=== PATIENT | female | born 1995 | race Caucasian/White ===

== ENCOUNTER 2017-10-08 20:54 | Emergency (ER) | payer BC ==
--- NOTE | 2017-10-08 21:40 | Emergency Department Record ---
History of Present Illness - General Chief Complaint: Dizziness Stated Complaint: LIGHT HEADED AND HEAVYNESS IN CHEST Time Seen by Provider: 10/08/17 21:18 Source: Patient Mode of Arrival: Ambulatory - History of Present Illness Initial Comments: The patient has a 2 days ago at [facility] with epidural anesthesia. Following the delivery the next day she felt slight epigasric/chest discomfort and dizziness when she was walking. She states she had an EKG done and was given GI medicine with relief of what was felt to be GERD. Today she continues to have a fluttery feeling in her chest with slight dizziness when she stands and walks. She denies SOB. While in the delivery room after getting the epidural in place, she states she began feeling nauseated and anxious, "I was freaking out, my pulse was 120-135 and my BP became elevated." This resolved on its own. She came tonight because she still feels dizziness when she stands and slight epigastric discomfort. She is requesting a full work up. This is her second child. She denies vision changes, headache, stiff neck, but her lower back and thoracic back is sore. She denies swelling or tenderness in her legs. Risks: No DM, Htn, cholesterol elevation, smoking, FH heart problems, hx PE, DVT , or clotting disorders. Complaint: Lightheadedness (with standing up) Onset/Timin -: Days(s) Timing: Constant Description: Lightheadedness History of Same: No History of Trauma: No Severity: Moderate Improves With: Nothing Worsens With: Nothing Associated Symptoms: Denies other symptoms - Related Data Home Medications Medication Instructions Recorded Confirmed Last Taken No122/Iron/Folic Acid 1 each PO DAILY 10/08/17 10/08/17 Unknown [ Multi Tablet] Allergies Allergy/AdvReac Type Severity Reaction Status Date / Time No Known Drug Allergies Allergy Verified 10/08/17 21:13 Travel Screening - Travel/Exposure Within Last 30 Days Have you traveled within the last 30 days?: No Review of Systems Reviewed: No additional complaints except as noted below Constitutional: Reports: As per HPI. Denies: Chills, Fever, Malaise, Night sweats, Weakness, Weight change Eyes: Reports: As per HPI. Denies: Eye discharge, Eye pain, Photophobia, Vision change ENT: Reports: As per HPI. Denies: Congestion, Dental pain, Ear pain, Epistaxis , Hearing loss, Throat pain Respiratory: Reports: As per HPI. Denies: Cough, Dyspnea, Hemoptysis, Stridor, Wheezes Cardiovascular: Reports: As per HPI. Denies: Arrhythmia, Chest pain, Dyspnea on exertion, Edema, Murmurs, Orthopnea, Palpitations, Paroxysmal nocturnal dyspnea, Rheumatic Fever, Syncope Endocrine: Reports: As per HPI. Denies: Fatigue, Heat or cold intolerance, Polydipsia, Polyuria Gastrointestinal: Reports: As per HPI. Denies: Abdominal pain, Constipation, Diarrhea, Hematemesis, Hematochezia, Melena, Nausea, Vomiting Genitourinary: Reports: As per HPI. Denies: Abnormal menses, Discharge, Dyspareunia, Dysuria, Frequency, Hematuria, Incontinence, Retention, Urgency Musculoskeletal: Reports: As per HPI. Denies: Arthralgia, Back pain, Gout, Joint swelling, Myalgia, Neck pain Skin: Reports: As per HPI. Denies: Bruising, Change in color, Change in hair/ nails, Lesions, Pruritus, Rash Neurological: Reports: As per HPI. Denies: Abnormal gait, Confusion, Headache, Numbness, Paresthesias, Seizure, Tingling, Tremors, Vertigo, Weakness Psychiatric: Reports: As per HPI. Denies: Anxiety, Auditory hallucinations, Depression, Homicidal thoughts, Suicidal thoughts, Visual hallucinations Hematological/Lymphatic: Reports: As per HPI. Denies: Anemia, Blood Clots, Easy bleeding, Easy bruising, Swollen glands Past Medical History - SOCIAL HISTORY Smoking Status: Never smoker Alcohol Use: None Drug Use: None - RESPIRATORY Hx Respiratory Disorders: No - CARDIOVASCULAR Hx Cardio Disorders: No - NEURO Hx Neuro Disorders: No - GI Hx GI Disorders: Yes Hx Reflux: Yes - Hx Genitourinary Disorders: No - ENDOCRINE Hx Endocrine Disorders: No - MUSCULOSKELETAL Hx Musculoskeletal Disorders: No - PSYCH Hx Psych Problems: No - HEMATOLOGY/ONCOLOGY Hx Hematology/Oncology Disorders: No Family Medical History Any Significant Family History?: Yes Hx Cancer: Grandparents *Cancer Comment: Aunt Physical Exam - General General Appearance: Alert, Oriented x3, Cooperative, No acute distress - Head Head exam: Normal inspection - Eye Eye exam: Normal appearance, PERRL, EOMI. negative: Nystagmus Pupils: Normal accommodation - ENT ENT exam: Normal exam, Mucous membranes moist, Normal external ear exam, Normal orophraynx, TM's normal bilaterally Ear exam: Normal external inspection. negative: External canal tenderness Nasal Exam: Normal inspection. negative: Discharge, Sinus tenderness Mouth exam: Normal external inspection, Tongue normal Teeth exam: Normal inspection. negative: Dental caries Throat exam: Normal inspection. negative: Tonsillar erythema, Tonsillar exudate - Neck Neck exam: Normal inspection, Full ROM. negative: Tenderness - Respiratory Respiratory exam: Normal lung sounds bilaterally. negative: Respiratory distress - Cardiovascular Cardiovascular Exam: Regular rate, Normal rhythm, Normal heart sounds - GI/Abdominal GI/Abdominal exam: Soft, Normal bowel sounds. negative: Tenderness - Rectal Rectal exam: Deferred - exam: Deferred - Extremities Extremities exam: Normal inspection, Full ROM, Normal capillary refill. negative: Calf tenderness, Pedal edema, Tenderness - Back Back exam: Reports: Normal inspection, Full ROM, Other (mildly tender over epidural region, with diffuse mild "achy" soreness over thoracic back. No bony tenderness. ). Denies: CVA tenderness (R), CVA tenderness (L), Muscle spasm, Rash noted, Tenderness, Vertebral tenderness - Neurological Neurological exam: Alert, Normal gait, Oriented X3, Reflexes normal - Psychiatric Psychiatric exam: Normal affect, Normal mood - Skin Skin exam: Dry, Intact, Normal color, Warm Course Vital Signs 10/08/17 21:14 Temperature 98.5 F Pulse Rate [ 75 Pulse Ox Probe] Respiratory 20 Rate Blood Pressure 132/89 [Left Arm] Pulse Ox 98 - Reevaluation(s) Reevaluation #1: 10/09/17 00:28 All labs returned normal except for elevated TSH of 4.72. Review of old record from [facility] discussed. Patient states she is feeling better and no longer has symptoms when she stands, sits, or reclines. She has no further symptoms currrently. Her 30 point pulse jump from laying to standing has resolved after hydration. 10/09/17 00:29 Reevaluation #2: repeat BP's show systolic pressures of 118, 116/90, 111/77. 10/09/17 00:37 Medical Decision Making - Management Options MDM Management: No Additional Work-up Planned (PCP follow up for elevated TSH;) - Data Complexity MDM Data: Labs Ordered and/or Reviewed (All labs normal except TSH of 4.72 and alk phos of 173. ), X-Ray Ordered and/or Reviewed (CXR Neg per ED physician.), EKG Ordered and/or Reviewed (EKG:NSR at 70 with no acute abnormality.), Decision to Obtain Old Record, Review and Summary of Old Record Discussed - Lab Data Result diagrams: 10/08/17 21:50 10/08/17 21:50 Disposition Disposition: Discharge Clinical Impression: Orthostatic dizziness, Elevated TSH Disposition: Home, Self-Care Condition: (1) Good Instructions: Dizziness (ED), Dehydration (ED) Additional Instructions: Increase your fluid intake as your milk will be coming in shortly. Follow up with your PCP for elevated TSH. Routine post- checks and checks as previously arranged. Forms: Patient Portal Access Quality - Quality Measures Quality Measures: N/A - Blood Pressure Screening Does Patient Have Any of the Following: No Blood Pressure Classification: Pre-Hypertensive BP Reading Systolic Measurement: 132 Diastolic Measurement: 89 Screening for High Blood Pressure: < Normal BP, F/U Not Required > [G8783]
[2017-10-08] MEDS ORDERED: 0.9 % SODIUM CHLORIDE 1,000 ML BAG IV ONE (21:43)
[2017-10-08 22:04] LABS: BASO % 0.3 % (0-6); EOS % 2.2 % (0-6); HEMATOCRIT 41.3 % (35.0-47.0); HEMOGLOBIN 13.4 gm/dl (11.6-16.0); LYMPH % 25.4 % (16-45); MEAN CELL VOLUME 91.2 fl (81-97); MEAN CORPUSCULAR HEMOGLOBIN 29.6 pg (27-33); MEAN CORPUSCULAR HGB CONC 32.4 g/dl (32-36); MONO % 8.1 % (0-9); PLATELET COUNT 194 K/uL (130-400); RED BLOOD COUNT 4.53 M/uL (3.80-5.40); RED CELL DISTRIBUTION WIDTH 13.1 % (11.5-14.5); WHITE BLOOD COUNT W/O DIFF 9.8 K/uL (4.2-12.2)
[2017-10-08 22:11] LABS: URINE APPEARANCE SL CLOUDY; URINE BILIRUBIN NEGATIVE (NEGATIVE); URINE BLOOD LARGE (NEGATIVE); URINE COLOR YELLOW; URINE GLUCOSE (UA) NEGATIVE (NEGATIVE); URINE KETONE NEGATIVE (NEGATIVE); URINE NITRITE NEGATIVE (NEGATIVE); URINE PROTEIN NEGATIVE (NEGATIVE); URINE UROBILINOGEN 0.2 E.U./dL (0.20 - 1.00)
[2017-10-08 22:15] LABS: URINE BACTERIA NONE SEEN; URINE LEUKOCYTE ESTERASE TRACE (NEGATIVE); URINE RBC 21 - 35 (NONE SEEN); URINE WBC 0 - 2 (0-2/hpf)
[2017-10-08 22:18] LABS: BLOOD UREA NITROGEN 10 mg/dL (6-20); CREATININE 0.6 mg/dL (0.5-0.9); EST GLOMERULAR FILTRATION RATE > 60 mL/min; TOTAL PROTEIN 6.4 g/dL (6.6-8.7)
[2017-10-08 22:20] LABS: GLUCOSE,RANDOM 83 mg/dL (74-109); INR 0.9; PARTIAL THROMBOPLASTIN TIME 26.1 SECONDS (24.5-39.1); PROTHROMBIN TIME (PATIENT) 10.2 SECONDS (9.5-12.1)
[2017-10-08 22:23] LABS: ALB/GLOB RATIO 1.2 (1.1-1.8); ALBUMIN 3.5 g/dL (4.0-5.0); ALKALINE PHOSPHATASE 172 U/L (35-104); ALT/SGPT 19 U/L (<33); AST/SGOT 32 U/L (10.0-35.0)
[2017-10-08 22:35] LABS: THYROID STIMULATING HORMONE 4.72 uIU/mL (0.270-4.20)
--- NOTE | 2017-10-10 18:56 | RADIOLOGY REPORT ---
EXAM: CHEST 2 VIEWS HISTORY: EPIGASTRIC PAIN. HEART PALPITATIONS AND FLUTTERING. LIGHTHEADEDNESS AND BACK PRESSURE. TECHNIQUE: PA and lateral upright views of the chest were obtained. COMPARISON: None. FINDINGS: The heart, mediastinum, and pulmonary vasculature are normal. The lungs are clear. There is no pneumothorax or effusion. The bones are unremarkable. IMPRESSION: NEGATIVE CHEST. JOB NUMBER: [id number] MTDD
== END 2017-10-09 01:16 | disposition home or self-care (01) ==
LOC: ER 20:54
DX: O90.89 Other complications of the puerperium, not elsewhere classified (principal); E86.0 Dehydration; R42 Dizziness and giddiness; R94.6 Abnormal results of thyroid function studies
CPT/HCPCS: 71046; 80053; 81001; 84443; 84484; 85025; 85610; 85730; 93005; 93010; 99284